=== PATIENT | male | born 1995 | race Caucasian/White ===

== ENCOUNTER → 2020-02-14 09:13 | Outpatient (CLI) | payer OTHER, SELFPAY ==
--- NOTE | 2020-02-14 09:25 | RAD_ITS ---
STUDY: X-RAY - ABDOMEN/PELVIS REASON FOR EXAM: Male, 24 years old. Dysuria, urinary retention, lower abdominal pain, back pain, some nausea, looking for kidney or bladder stone TECHNIQUE: Single AP view of the abdomen / pelvis. COMPARISON: None. FINDINGS: Normal visualized lung bases. There is a moderate amount of colonic fecal material. The visualized liver, spleen and kidneys are grossly normal in size and morphology. Normal soft tissue structures. Normal visualized osseous structures. RAD/Abdomen Single View IMPRESSION: Moderate amount of fecal material is seen in the colon. Electronically Signed: Atilio Rapp, at 9:38 EDT , Service support ,
== END ==
PROVIDERS: PCP Family Medicine; Referring Provider Family Medicine; Visit Provider Family Medicine
DX: R30.0 Dysuria (principal); R33.9 Retention of urine, unspecified
CPT/HCPCS: 74018